=== PATIENT | male | born 1975 | race Caucasian/White ===

== ENCOUNTER 2017-02-26 21:47 | Emergency (ER) | payer SELFPAY ==
[~2017-02-26] VITALS: Ht 175.3 cm; Wt 118.0 kg
[2017-02-26 21:55] VITALS: BP 150/101; PULSE 103; RESP 12; TEMP 98.5; O2SAT 94
--- NOTE | 2017-02-26 21:58 | PD ---
HPI Chief Complaint: Elbow Lump Time Seen by Provider: 21:58 Travel History International Travel<30 days: No Contact w/Intl Traveler<30days: No Traveled to known affect area: No History of Present Illness HPI 42-year-old male presents the emergency Department with 2 complaints. One is from an injury that occurred 1 year ago in the left proximal forearm. Patient states he was moving appliances at that time, when one of the appliances slipped and he developed sudden onset pain, swelling, and ecchymosis to his left arm area. He now has a firm mobile nontender lump measuring 4 cm x 5 cm. Patient also states he bumped his left olecranon elbow while working 2 days ago, and he subsequently has a small amount of swelling and fluid in this area. This is tender with palpation. Range of motion is full and intact. Eyes numbness or tingling. He denies any weakness. There are no open wounds or abrasions. There is no redness. He has no known drug allergies. [facility] Social History Alcohol Use: No Tobacco Use: No Substance Use: No Allergies-Medications (Allergen,Severity, Reaction): Coded Allergies: No Known Allergies (Unverified , 02/26/17) Reported Meds & Prescriptions Reported Meds & Active Scripts Active No Active Prescriptions or Reported Medications Review of Systems Except as stated in HPI: all other systems reviewed are Neg General / Constitutional: No: Fever Eyes: No: Visual changes HENT: No: Headaches Cardiovascular: No: Chest Pain or Discomfort Respiratory: No: Shortness of Breath Gastrointestinal: No: Abdominal Pain Genitourinary: No: Dysuria Musculoskeletal: No: Pain Skin: No Rash Neurologic: No: Weakness Psychiatric: No: Depression Endocrine: No: Polydipsia Hematologic/Lymphatic: No: Easy Bruising Physical Exam Narrative GENERAL: Patient appears in no acute distress. SKIN: Warm and dry. Normal color. Normal turgor. HEAD: Atraumatic. Normocephalic. EYES: Pupils equal and round. No scleral icterus. No injection or drainage. ENT: No nasal bleeding or discharge. Mucous membranes pink and moist. NECK: Trachea midline. No JVD. CARDIOVASCULAR: Regular rate and rhythm. RESPIRATORY: No accessory muscle use. Clear to auscultation. Breath sounds equal bilaterally. GASTROINTESTINAL: Abdomen soft, non-tender, nondistended. Hepatic and splenic margins not palpable. MUSCULOSKELETAL: Extremities without clubbing, cyanosis, or edema. Patient has a large firm mobile nontender lump to the left proximal forearm consistent with either torn muscle or lipoma. Patient also has mildly tender mildly swollen olecranon bursa on the left elbow. There are no open wounds or signs of infection. NEUROLOGICAL: Awake and alert. No obvious cranial nerve deficits. Motor grossly within normal limits. Five out of 5 muscle strength in the arms and legs. Normal speech. PSYCHIATRIC: Appropriate mood and affect; insight and judgment normal. Data Data Last Documented VS Vital Signs Date Time Temp Pulse Resp B/P Pulse Ox O2 Delivery O2 Flow Rate FiO2 02/26/17 21:55 98.5 103 12 150/101 94 MDM Medical Decision Making Medical Screen Exam Complete: Yes Emergency Medical Condition: Yes Differential Diagnosis Olecranon bursitis. Elbow contusion. Lipoma versus torn muscle in the left forearm. Narrative Course Patient is medically stable at time of exam. Radiographic imaging is not felt warranted based on my history and physical. Patient will be given ibuprofen 600 mg 4 times a day #40. Patient is to use compression and ice to the area frequently for the next week. Patient is referred to Dr. Burgess, the hand surgeon for both issues. He will follow-up with a hand surgeon as needed. Patient can return to emergency Department with worsening symptoms if necessary. Diagnosis Primary Impression: Olecranon bursitis of left elbow Additional Impressions: Lipoma of arm Qualified Code: D17.22 - Lipoma of left upper extremity Torn muscle Referrals: Talya Burgess MD as needed Patient Instructions: Elbow Bursitis (ED), Elbow Bursitis Exercises (GEN), General Instructions, Lipoma (ED) Additional Instructions: Radiographic imaging is not felt warranted based on my history and physical. Patient will be given ibuprofen 600 mg 4 times a day #40. Patient is to use compression and ice to the area frequently for the next week. Patient is referred to Dr. Burgess, the hand surgeon for both issues. He will follow-up with a hand surgeon as needed. Patient can return to emergency Department with worsening symptoms if necessary. Med/Other Pt SpecificInfo: Prescription(s) given Scripts No Active Prescriptions or Reported Meds Disposition: 01 DISCHARGE HOME Condition: Stable Layo Stanton February 26, 2017 21:58
[2017-02-26] MEDS ORDERED: IBUP-232 PO (22:21)
== END 2017-02-26 22:30 | disposition home or self-care (01) ==
LOC: PHEFT 21:47
DX: M70.22 Olecranon bursitis, left elbow (principal); D17.22 Benign lipomatous neoplasm of skin and subcutaneous tissue of left arm; S56.912A Strain of unspecified muscles, fascia and tendons at forearm level, left arm, initial encounter; W22.8XXA Striking against or struck by other objects, initial encounter; Y99.0 Civilian activity done for income or pay
CPT/HCPCS: 99282

== ENCOUNTER 2017-04-06 18:21 | Emergency (ER) | payer SELFPAY ==
[~2017-04-06] VITALS: Ht 177.8 cm; Wt 117.0 kg
[~2017-04-06 18:21] MED LIST: IBUP-232 PO
[2017-04-06 18:24] VITALS: BP 134/94; PULSE 78; RESP 16; TEMP 98.7; O2SAT 99
--- NOTE | 2017-04-06 18:53 | PD ---
HPI Chief Complaint: Injury Time Seen by Provider: 18:48 Travel History International Travel<30 days: No Contact w/Intl Traveler<30days: No Traveled to known affect area: No History of Present Illness HPI 42-year-old male presents to the emergency room for evaluation of left hand pain for the past 2 days. Patient states he accidentally crushed his hand between a large crate and a pallet. His friends had to lift the crate for him to remove his hand. He had immediate pain. He iced it that night but then had to drive from [place] to [place] so he was unable to have it checked out. Patient states he arrived in [place] last night. He has not taken anything for her symptoms. Reports extreme pain over the third and fourth metacarpals that is worse with range of motion and palpation. No paresthesias. PFSH Past Medical History Medical History: Denies Significant Hx Hx Anticoagulant Therapy: No Diabetes: No Diminished Hearing: No Tetanus Vaccination: > 5 Years Influenza Vaccination: No Past Surgical History Surgical History: No Previous Surgery Social History Alcohol Use: No Tobacco Use: No Substance Use: No Allergies-Medications (Allergen,Severity, Reaction): Coded Allergies: No Known Allergies (Unverified , 04/06/17) Reported Meds & Prescriptions Reported Meds & Active Scripts Active No Active Prescriptions or Reported Medications Review of Systems Except as stated in HPI: all other systems reviewed are Neg Physical Exam Narrative GENERAL: Well-nourished, well-developed male in no acute distress. Afebrile. Ambulatory. SKIN: Focused skin assessment warm/dry. Mild erythema localized to the left dorsal hand over the third and fourth metacarpals. HEAD: Normocephalic. EYES: No scleral icterus. No injection or drainage. NECK: Supple, trachea midline. No JVD or lymphadenopathy. CARDIOVASCULAR: Regular rate and rhythm without murmurs, gallops, or rubs. RESPIRATORY: Breath sounds equal bilaterally. No accessory muscle use. EXTREMITY: Left hand extremely tender to palpation dorsally over the third and fourth metacarpals. 2+ radial pulses. Less than 2 second capillary refill distally. Limited range of motion secondary to pain. Compartments soft. Data Data Last Documented VS Vital Signs Date Time Temp Pulse Resp B/P Pulse Ox O2 Delivery O2 Flow Rate FiO2 04/06/17 18:24 98.7 78 16 134/94 99 Orders Hand, Complete (Aps2wny) (04/06/17 ) [facility] Medical Decision Making Medical Screen Exam Complete: Yes Emergency Medical Condition: Yes Medical Record Reviewed: Yes Differential Diagnosis Fracture, strain, sprain, contusion Narrative Course 42-year-old male presents to the emergency room for evaluation of left posterior hand pain and swelling after crush injury 2 days ago. Physical exam reveals moderate edema and mild erythema of the left dorsal hand. It is extremely tender to palpation. Less than 2 second capillary refill distally. Full range of motion. Compartments soft. She is negative. This is contusion. Patient was instructed to elevate and apply ice to prevent compartment syndrome. Told to return for worsening symptoms. He understands and agrees to plan. Diagnosis Primary Impression: Contusion of left hand Qualified Code: S60.222A - Contusion of left hand, initial encounter Referrals: Primary Care Physician Patient Instructions: Contusion in Adults (ED), General Instructions Additional Instructions: Rest and drink plenty of fluids. Use Jose Antonio wrap as needed for pain and swelling. Take ibuprofen with food as directed, as needed for pain. Elevate and apply ice to the affected area for 20 minutes at a time, as needed for pain and swelling. Follow-up with a primary care physician. Return to the emergency room for worsening symptoms. Med/Other Pt SpecificInfo: Prescription(s) given Scripts No Active Prescriptions or Reported Meds Disposition: 01 DISCHARGE HOME Condition: Stable Kim Bustamante Apr 06, 2017 18:53
--- NOTE | 2017-04-06 20:07 | RADHPO ---
EXAM DATE/TIME: 04/06/2017 19:20 [place] COMPARISON: No previous studies available for comparison. INDICATIONS : Left hand pain. Patient states his hand got jammed between two pallets. MEDICAL HISTORY : None. SURGICAL HISTORY : None. ENCOUNTER: Initial ACUITY: 4 - 6 days PAIN SCORE: 4/10 LOCATION: Left hand. FINDINGS: Three view examination of the left hand demonstrates no soft tissue swelling, dislocation, or fractur e. The carpal bones appear intact. The interphalangeal and metacarpophalangeal joints are intact. Bony mineralization is normal. CONCLUSION: Unremarkable examination of the left hand. Ezra German MD on April 06, 2017 at 20:03 Board Certified Radiologist. This report was verified electronically.
== END 2017-04-06 20:24 | disposition home or self-care (01) ==
LOC: PHEFT 18:21
DX: S60.222A Contusion of left hand, initial encounter (principal); W23.1XXA Caught, crushed, jammed, or pinched between stationary objects, initial encounter; Y93.9 Activity, unspecified; Y92.9 Unspecified place or not applicable; Y99.9 Unspecified external cause status
CPT/HCPCS: 73130; 99283